=== PATIENT | male | born 1960 | race Two or more races ===

== ENCOUNTER 2022-09-22 03:31 | Emergency (ER) | payer OTHER ==
[~2022-09-22] VITALS: Ht 165.1 cm; Wt 73.9 kg
--- NOTE | 2022-09-22 04:18 | NUR ---
PT LAUREN CORONEL; T/TH/SAT. PER EMS DOES NOT PRODUCE URINE; DR SCHOFIELD AWARE
--- NOTE | 2022-09-22 04:18 | NUR ---
LIS APA [id number] FROM [place] [facility] C/O SI. PLAN TO RUN INTO TRAFFIC REQESTING VOLUNTARY ADMIT TO PSYCH. A/OX2. TOLERATING R/A WELL WITH NO RESP DISTRESS. AMBULATORY WITH STEADY GAIT. SAFETY MEASURES IN PLACE.
--- NOTE | 2022-09-22 04:47 | NUR ---
COVID ANTIGEN SWAB COLLECTED
[2022-09-22 05:23] LABS: BASOPHILS # (AUTO) 0.1 K/uL (0.0-0.2); BASOPHILS % (AUTO) 1.3 % (0.0-2.0); EOSINOPHILS % (AUTO) 3.7 % (0.0-6.0); HEMATOCRIT 32 % (39-51); HEMOGLOBIN 9.9 g/dL (13.5-17.5); LYMPHOCYTES # (AUTO) 1.1 K/uL (0.8-4.8); LYMPHOCYTES % (AUTO) 23.5 % (20.0-44.0); MEAN CORPUSCULAR HGB CONC 31 g/dl (31.0-36.0); MEAN CORPUSCULAR VOLUME 89 fL (80-96); MONOCYTES # (AUTO) 0.4 K/uL (0.1-1.30); NEUTROPHILS # (AUTO) 2.8 K/uL (1.8-8.9); NEUTROPHILS % (AUTO) 62.5 % (43.0-81.0); PLATELET COUNT (AUTO) 192 K/uL (150-450); RED BLOOD CELL COUNT(AUTO) 3.59 MIL/uL (4.5-6.0); WHITE BLOOD COUNT (AUTO) 4.5 K/uL (4.3-11.0)
[2022-09-22 06:19] LABS: CALCIUM, SERUM 8.1 mg/dL (8.5-10.1); CARBON DIOXIDE 22 mmol/L (21-32); CHLORIDE 94 mmol/L (98-107); CREATININE 6.8 mg/dL (0.6-1.3); GLUCOSE 143 mg/dL (74-106); POTASSIUM 4.5 mmol/L (3.5-5.1); SODIUM SERUM 129 mmol/L (136-145); UREA NITROGEN, BLOOD 50 mg/dL (7-18)
[2022-09-22 06:25] LABS: ALANINE AMINOTRANSFERASE 9 U/L (12-78); ALBUMIN 2.3 g/dL (3.4-5.0); ALCOHOL, BLOOD < 3 mg/dL (0-0); ALKALINE PHOSPHATASE 129 U/L (46-116); ASPARTATE AMINOTRANSFERASE 17 U/L (15-37); BILIRUBIN,DIRECT 0.1 mg/dL (0.0-0.2); BILIRUBIN,TOTAL 0.4 mg/dL (0.2-1.0)
[2022-09-22 06:27] LABS: ACETAMINOPHEN < 10 ug/ml (10-30)
--- NOTE | 2022-09-22 10:51 | NUR ---
Psych placement SW faxed clinicals to the [facility] as they take voluntary admissions and pt.'s with HD needs: [facility] FAX: [phone] TEL:[phone] [facility] TEL: [phone] fax: [phone]
--- NOTE | 2022-09-22 12:18 | NUR ---
Demetria from [facility] TEL: [phone] requested new vitals be faxed to [facility] at fax: [phone]. MARTY notified Kai from ED and he stated he will take new vitals.
--- NOTE | 2022-09-22 12:30 | NUR ---
MARTY notified ED again about new vitals.
--- NOTE | 2022-09-22 13:31 | NUR ---
PT ASKED STATES THAT HE DOES NOT WANT TO KILL HIMSELF. THAT HE DOES NOT WANT TO RUN OUT INTO THE STREET TO KILL HIMSELF. HE WANT TO GET DIALYSIS BECUASE HE HAS MISSED IT FOR 3 DAYS DAUGHTER IS COMING TO PICK HIM UP. THEY WILL MAKE THEIR OWN APPOINTMENT FOR DIALYSIS.
--- NOTE | 2022-09-22 13:40 | NUR ---
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 pt's family refused to sign discharge paper.
[2022-09-22 16:00] VITALS: BP 155/80
== END 2022-09-22 16:01 | disposition home or self-care (01) ==
LOC: ER 03:39
DX: R45.851 Suicidal ideations (principal); A41.9 Sepsis, unspecified organism; D64.9 Anemia, unspecified; E11.22 Type 2 diabetes mellitus with diabetic chronic kidney disease; N18.6 End stage renal disease; E03.9 Hypothyroidism, unspecified; I50.9 Heart failure, unspecified; Z20.822 Contact with and (suspected) exposure to COVID-19; Z99.2 Dependence on renal dialysis
CPT/HCPCS: 99285; 85025; 80048; 80076; 36415; 87426; 80143; 80320; C9803; G0480